=== PATIENT | female | born 1995 | race Caucasian/White ===

== ENCOUNTER → 2016-08-06 | Outpatient (CLI) | payer BC ==
[2016-08-06 12:08] LABS: HEMOGLOBIN 11.2 gm/dl (12.3-15.3); RED BLOOD COUNT 4.71 M/UL (4.00-5.10); WHITE BLOOD COUNT 12.6 K/UL (4.5-11.0)
[2016-08-06 12:18] LABS: BUN/CREATININE RATIO 22 (0-10)
== END ==
LOC: OPSV 11:00
PROVIDERS: Internal Medicine Gastroenterology
DX: K51.90 Ulcerative colitis, unspecified, without complications (principal); Z88.1 Allergy status to other antibiotic agents; Z91.012 Allergy to eggs
CPT/HCPCS: 36415; 80053; 85025; 86140; 96375; 96413; 96415; J1720; J1745; Q0163

== ENCOUNTER → 2016-11-06 | Outpatient (CLI) | payer BC ==
[~2016-11-06] VITALS: Ht 165.1 cm; Wt 153.3 kg
[2016-11-06 12:46] LABS: HEMOGLOBIN 10.7 gm/dl (12.3-15.3); RED BLOOD COUNT 4.36 M/UL (4.00-5.10); WHITE BLOOD COUNT 10.2 K/UL (4.5-11.0)
[2016-11-06 13:15] LABS: BUN/CREATININE RATIO 16 (0-10)
== END ==
LOC: OPSV 12:00
PROVIDERS: Internal Medicine Gastroenterology
DX: K51.90 Ulcerative colitis, unspecified, without complications (principal)
CPT/HCPCS: 36415; 80053; 85025; 86140; 96375; 96413; 96415; J1720; J1745; Q0163

== ENCOUNTER → 2020-05-30 | Outpatient (CLI) | payer BC ==
[~2020-05-30] MED LIST: LODINE CAP 300300 MG PO; PREDNISONE 50 M50 MG PO
== END ==
LOC: KOH-I 15:34
DX: J91.8 Pleural effusion in other conditions classified elsewhere (principal); R11.2 Nausea with vomiting, unspecified
CPT/HCPCS: 71046; 74018

== ENCOUNTER 2020-06-04 20:30 | Outpatient (CLI) | payer BC ==
[2020-06-05 13:26] LABS: HEMOGLOBIN 10.9 gm/dl (12.3-15.3); RED BLOOD COUNT 3.72 M/UL (4.00-5.10); WHITE BLOOD COUNT 5.5 K/UL (4.5-11.0)
[2020-06-05 13:40] LABS: BUN/CREATININE RATIO 23 (0-10)
== END 2020-06-05 22:00 | disposition home or self-care (01) ==
LOC: LAB 20:30
PROVIDERS: Internal Medicine
DX: K51.90 Ulcerative colitis, unspecified, without complications (principal); A49.01 Methicillin susceptible Staphylococcus aureus infection, unspecified site
CPT/HCPCS: 80048; 85025

== ENCOUNTER → 2020-10-05 | Outpatient (CLI) | payer BC ==
[2020-10-05 16:11] LABS: HEMOGLOBIN 14.5 gm/dl (12.3-15.3); RED BLOOD COUNT 4.84 M/UL (4.00-5.10); WHITE BLOOD COUNT 6.3 K/UL (4.5-11.0)
[2020-10-05 16:24] LABS: BUN/CREATININE RATIO 16 (0-10)
== END ==
LOC: LAB 15:18
PROVIDERS: Physician Assistant
DX: K51.00 Ulcerative (chronic) pancolitis without complications (principal)
CPT/HCPCS: 36415; 80053; 85025; 86140